=== PATIENT | male | born 1985 | race Caucasian/White ===

== ENCOUNTER 2016-12-15 03:08 | Emergency (ER) | payer OTHER ==
[~2016-12-15 03:08] MED LIST: E-MYCIN250 MG PO; ERYTHROMYCIN O3.5 GM OD; NAPHCON-A EYE D15 M1 OP; NO MEDICATIONS; RONDEC-DM ORAL30 ML PO
== END 2016-12-15 04:53 | disposition home or self-care (01) ==
LOC: CED 03:08
DX: L03.115 Cellulitis of right lower limb (principal); F17.200 Nicotine dependence, unspecified, uncomplicated; Z98.890 Other specified postprocedural states; W26.8XXA Contact with other sharp object(s), not elsewhere classified, initial encounter
CPT/HCPCS: 90471; 90715; 99283